=== PATIENT | female | born 1985 | race Hispanic/Latino ===

== ENCOUNTER 2021-11-05 10:55 | Emergency (ER) | payer SELFPAY ==
[2021-11-05 11:40] LABS: Bilirubin Neg (Negative); Blood, Urine Negative (Negative); Clarity Slightly Cloudy (Clear); Glucose, Urine (Dipstick) Normal (Negative); Ketone, Urine Negative (Negative); Leukocyte 25 (Negative); Nitrite Negative (Negative); Protein, Urine (Dipstick) Negative (Neg-Trace); Urobilinogen Normal mg/dL (Less than 2)
[2021-11-05 11:49] LABS: #Eosinphils 0.1 10x3/uL (0.0-0.5); #Monocytes 0.5 10x3/uL (0.0-1.1); #Neutrophils 5.9 10x3/uL (1.5-8.4); %Basophils 0.3 % (0.0-2.0); %Eosinophils 0.6 % (0.0-6.0); %Lymphocytes 25.6 % (18.0-47.0); %Monocytes 5.2 % (0.0-10.0); %Neutrophils 67.8 % (40.0-75.0); Hemoglobin 13.7 g/dL (12.0-15.5); Mean Corpuscular HGB CONC 33.9 g/dL (32.0-36.0); Mean Corpuscular Hemoglobin 29.5 pg (27.0-33.0); Mean Corpuscular Volume 87.1 fl (81.6-98.3); Mean Platelet Volume 10.5 fl (7.4-10.4); Platelet Count 213 10x3/uL (150-450); RBC Distribution Width 13.3 % (11.5-14.5); Red Blood Cell (RBC) Count 4.64 10x6/uL (3.90-5.03); White Blood Cell (WBC) Count 8.7 10x3/uL (3.5-10.5)
[2021-11-05 12:00] LABS: RBC/HPF 0-3 HPF (0-3); WBC/HPF 0-3 HPF (0-3)
[2021-11-05 12:01] LABS: Bacteria/HPF 2+ HPF (None Seen)
[2021-11-05 12:01] LABS: ALT (SGPT) 17 U/L (8-55); AST (SGOT) 19 U/L (5-34); Albumin 4.3 g/dL (3.5-5.0); Alkaline Phosphatase 78 U/L (40-110); Anion Gap 14 mmol/L (10-20); BUN (Urea Nitrogen) 10 mg/dL (7.0-18.7); Bilirubin, Total 0.6 mg/dL (0.2-1.2); Calc. Creatinine Clearance 0 mL/min (70-130); Calcium 9.4 mg/dL (7.8-10.44); Carbon Dioxide 22 mmol/L (22-29); Chloride 103 mmol/L (98-107); Glucose 78 mg/dL (70-105); Lipase 10 U/L (8-78); Potassium 3.9 mmol/L (3.5-5.1); Protein, Total 8.3 g/dL (6.0-8.3); Sodium 135 mmol/L (136-145)
== END 2021-11-05 14:10 | disposition home or self-care (01) ==
LOC: CSHERS 10:55
DX: O99.891 Other specified diseases and conditions complicating pregnancy (principal); R06.00 Dyspnea, unspecified; Z3A.01 Less than 8 weeks gestation of pregnancy
CPT/HCPCS: 71045; 80053; 81003; 81015; 83690; 84702; 85025

== ENCOUNTER → 2022-05-20 | Day surgery (SDC) | payer SELFPAY ==
[~2022-05-20] MED LIST: Acetaminophen 500 MG TAB ONE; Acetaminophen 500 MG TAB PO SCH; Iron Sucrose Complex 500 MG in Sodium Chloride 0.9% 250 ML 250 ML IVPB SCH
== END ==
LOC: CSHSDC/OP 08:04
PROVIDERS: ATTEND Obstetrics & Gynecology
DX: O99.019 Anemia complicating pregnancy, unspecified trimester (principal); D64.9 Anemia, unspecified
CPT/HCPCS: J1756; J7050

== ENCOUNTER 2022-06-22 13:35 | Inpatient (IN) | payer OTHER ==
[2022-06-23] MEDS ORDERED: Bupivacaine 0.25% HCL 30 ML VIAL ONE (13:43)
[2022-06-23] MEDS ORDERED: Lidocaine 1% (PF) 30 ML VIAL SC PRN (17:54)
[2022-06-23] MEDS ORDERED: hydrALAZINE 20 MG/ML VIAL SLOW IVP PRN (17:54)
[2022-06-23] MEDS ORDERED: Ondansetron PF 4 MG/2 ML Vial IVP PRN (17:54)
[2022-06-23] MEDS ORDERED: Promethazine HCl 25 MG/ML VIAL IM PRN (17:54)
[2022-06-23] MEDS ORDERED: Acetaminophen 500 MG TAB PO PRN (17:55)
[2022-06-23] MEDS ORDERED: Methylergonovine 0.2 MG/ML VIAL IM PRN (17:55)
[2022-06-23] MEDS ORDERED: Ibuprofen 800 MG TAB PO PRN (17:55)
[2022-06-23] MEDS ORDERED: Misoprostol 200 MCG TAB PR PRN (17:55)
[2022-06-23] MEDS ORDERED: Carboprost 250 MCG/ML AMP IM PRN (17:55)
[2022-06-23] MEDS ORDERED: NS w/ Oxytocin 30 units 500 ML IV SCH ×2 (18:00)
[2022-06-23 18:59] LABS: Hemoglobin 11.7 g/dL (12.0-15.5); Mean Corpuscular HGB CONC 33.6 g/dL (32.0-36.0); Mean Corpuscular Hemoglobin 28.4 pg (27.0-33.0); Mean Corpuscular Volume 84.5 fl (81.6-98.3); Mean Platelet Volume 11.4 fl (7.4-10.4); Platelet Count 200 10x3/uL (150-450); RBC Distribution Width 20.3 % (11.5-14.5); Red Blood Cell (RBC) Count 4.12 10x6/uL (3.90-5.03); White Blood Cell (WBC) Count 9.5 10x3/uL (3.5-10.5)
[2022-06-23 19:33] LABS: HBSAg Index 0.24 S/CO (0-0.99); Hep B Surf Ag Non-Reactive S/CO (NonReactive)
[2022-06-23 19:35] LABS: Syphilis Antibody Nonreactive (Nonreactive); Syphilis Antibody Index 0.04 S/CO (<1.00 Non-Reactive)
[2022-06-23] MEDS: Misoprostol 100 MCG TAB VAG SCH (19:35)
[2022-06-23 19:50] VITALS: BMI 41.0
[2022-06-23 20:49] LABS: SARS-CoV-2 NAA Rapid Test Not Detected (NotDetected)
[2022-06-24] MEDS ORDERED: Fentanyl 100 MCG/2 ML VIAL SLOW IVP SCH ×2 (05:30→22:45)
[2022-06-24] MEDS ORDERED: Fentanyl 2 mcg/Bup 0.1% Cadd 100 ML ONE (10:16)
[2022-06-24] MEDS ORDERED: Naloxone HCl 0.4 mg/ml Vial IVP PRN ×2 (10:52)
[2022-06-24] MEDS ORDERED: diphenhydrAMINE 50 MG/ML VIAL IVP PRN (10:52)
[2022-06-24] MEDS ORDERED: Acetaminophen 325 MG TAB PO PRN (10:52)
[2022-06-24] MEDS ORDERED: Lactated Ringer's 500 ML IV PRN (10:52)
[2022-06-24] MEDS ORDERED: Ondansetron PF 4 MG/2 ML Vial IVP PRN (10:52)
[2022-06-24] MEDS ORDERED: Moisturizing Cream (Eucerin) 113 GM JAR TOP PRN (10:52)
[2022-06-24] MEDS ORDERED: Promethazine HCl 25 MG/ML VIAL IM PRN (10:52)
[2022-06-24] MEDS ORDERED: ePHEDrine Sulfate 50 MG/10 ML VIAL SLOW IVP PRN (10:52)
[2022-06-24] MEDS ORDERED: Fentanyl 2 mcg/Bupivacaine 0.1% Cassette 100 ML EPIDURAL SCH (11:00)
[2022-06-24] MEDS ORDERED: Communication Order-Pharmacy FS SCH (11:00)
[2022-06-24] MEDS ORDERED: Tranexamic Acid 1,000 MG/10 ML VIAL ONE (19:18)
[2022-06-24] MEDS ORDERED: Misoprostol 200 MCG TAB VAG PRN (22:16)
[2022-06-24] MEDS ORDERED: Lanolin Ointment 7 GM TUBE TOP PRN (22:16)
[2022-06-24] MEDS ORDERED: Bisacodyl 10 MG SUPP PR PRN (22:16)
[2022-06-24] MEDS ORDERED: Methylergonovine 0.2 MG/ML VIAL IM PRN (22:16)
[2022-06-24] MEDS ORDERED: hydrALAZINE 20 MG/ML VIAL SLOW IVP PRN (22:16)
[2022-06-24] MEDS ORDERED: Milk Of Magnesia 30 ML UDCUP PO PRN (22:16)
[2022-06-24] MEDS ORDERED: Boostrix 0.5 ML (Tdap) VIAL (>/=7 yrs of age) IM ONE (22:16)
[2022-06-24] MEDS ORDERED: Ibuprofen 800 MG TAB PO SCH (22:30)
[2022-06-24] MEDS ORDERED: Docusate 100 MG CAP PO SCH (22:30)
[2022-06-25] MEDS: Ibuprofen 800 MG TAB PO SCH ×3 (04:01→20:27)
[2022-06-25 04:25] LABS: Hemoglobin 9.6 g/dL (12.0-15.5)
[2022-06-25] MEDS ORDERED: Ibuprofen 800 MG TAB PO SCH (06:00)
[2022-06-25] MEDS: Acetaminophen 500 MG TAB PO SCH ×2 (10:50→19:13)
[2022-06-25] MEDS: Docusate 100 MG CAP PO SCH ×2 (11:04→20:28)
[2022-06-25] MEDS: Ferrous Sulfate 325 MG TAB PO SCH ×2 (11:04→19:13)
[2022-06-25] MEDS: Misoprostol 100 MCG TAB VAG SCH ×2 (21:06→21:07)
[2022-06-26] MEDS: Acetaminophen 500 MG TAB PO SCH ×2 (02:59→08:50)
[2022-06-26] MEDS: Ibuprofen 800 MG TAB PO SCH (03:23)
[2022-06-26 08:07] VITALS: BP 102/57; TEMP 98.4
[2022-06-26] MEDS: Ferrous Sulfate 325 MG TAB PO SCH (08:49)
[2022-06-26] MEDS: Docusate 100 MG CAP PO SCH (08:49)
== END 2022-06-26 14:20 | disposition home or self-care (01) | DRG 807 ==
LOC: CSHLD 06-23 17:49 → CSHPP 06-25 10:05
PROVIDERS: ADMIT Family Medicine; ATTEND Family Medicine
PROC: 3E0P7VZ Introduction of Hormone into Female Reproductive, Via Natural or Artificial Opening (ICD-10-PCS; 2022-06-23)
PROC: 10907ZC Drainage of Amniotic Fluid, Therapeutic from Products of Conception, Via Natural or Artificial Opening (ICD-10-PCS; 2022-06-23)
PROC: 3E033VJ Introduction of Other Hormone into Peripheral Vein, Percutaneous Approach (ICD-10-PCS; 2022-06-23)
PROC: 10H07YZ Insertion of Other Device into Products of Conception, Via Natural or Artificial Opening (ICD-10-PCS; 2022-06-23)
PROC: 10E0XZZ Delivery of Products of Conception, External Approach (ICD-10-PCS; principal; 2022-06-24)
DX: O99.344 Other mental disorders complicating childbirth (principal); Z37.0 Single live birth; F41.1 Generalized anxiety disorder; D64.9 Anemia, unspecified; O99.02 Anemia complicating childbirth; Z79.82 Long term (current) use of aspirin; Z79.899 Other long term (current) drug therapy; O69.81X0 Labor and delivery complicated by cord around neck, without compression, not applicable or unspecified; F32.9 Major depressive disorder, single episode, unspecified; Z3A.40 40 weeks gestation of pregnancy
CPT/HCPCS: 36415; 51702; 85014; 85018; 85027; 86780; 86850; 86900; 86901; 87340; 99282; J2405; J2590; J3010; S0020; U0002

== ENCOUNTER 2022-06-22 19:00 | Day surgery (SDC) | payer OTHER ==
[2022-06-22 20:24] VITALS: BMI 26.6
[2022-06-22] MEDS ORDERED: hydrALAZINE 20 MG/ML VIAL SLOW IVP PRN (21:45)
[2022-06-22] MEDS ORDERED: Acetaminophen 325 MG TAB PO SCH (22:30)
== END 2022-06-22 23:03 | disposition home or self-care (01) ==
LOC: CSHLD/OP 19:00
PROVIDERS: ATTEND Emergency Medicine
DX: O47.1 False labor at or after 37 completed weeks of gestation (principal); O99.013 Anemia complicating pregnancy, third trimester; D64.9 Anemia, unspecified; O99.343 Other mental disorders complicating pregnancy, third trimester; F32.9 Major depressive disorder, single episode, unspecified; Z3A.39 39 weeks gestation of pregnancy
CPT/HCPCS: 99282

== ENCOUNTER 2025-05-30 18:00 | Inpatient (IN) | payer OTHER ==
[2025-05-30] MEDS ORDERED: hydrALAZINE 20 MG/ML VIAL SLOW IVP PRN (18:34)
[2025-05-30] MEDS ORDERED: Ondansetron PF 4 MG/2 ML Vial IVP PRN (18:34)
[2025-05-30] MEDS ORDERED: Lidocaine 1% (PF) 30 ML VIAL SC PRN (18:34)
[2025-05-30] MEDS ORDERED: Acetaminophen 500 MG TAB PO PRN (18:35)
[2025-05-30] MEDS ORDERED: Tranexamic Acid 1,000 MG/10 ML VIAL IVP PRN (18:35)
[2025-05-30] MEDS ORDERED: Methylergonovine 0.2 MG/ML VIAL IM PRN (18:35)
[2025-05-30] MEDS ORDERED: Oxytocin 30 units/NS 500 ML 500 ML IV SCH (18:45)
[2025-05-30 19:33] VITALS: BMI 36.9
[2025-05-30 21:48] LABS: Hematocrit 38.6 % (34.9-44.5); Hemoglobin 13.4 g/dL (12.0-15.5); Mean Corpuscular Hemoglobin 29.8 pg (27.0-33.0); Mean Corpuscular Volume 85.8 fL (81.6-98.3); Platelet Count 221 10x3/uL (150-450); Red Blood Cell (RBC) Count 4.50 10x6/uL (3.90-5.03); White Blood Cell (WBC) Count 9.30 10x3/uL (3.5-10.5)
[2025-05-31] MEDS ORDERED: Glucagon 1 MG/ML KIT IM PRN (00:53)
[2025-05-31] MEDS ORDERED: Dextrose 50% Abboject 50 ML SYRINGE SLOW IVP PRN (00:53)
[2025-05-31] MEDS: Ketorolac Tromethamine 30 MG (1 mL) VIAL IVP SCH (07:45)
[2025-05-31] MEDS ORDERED: Carboprost 250 MCG/ML AMP IM SCH (12:00)
[2025-05-31] MEDS: Diphenoxylate HCl/Atropine Tablet PO PRN ×2 (12:17→18:03)
[2025-05-31] MEDS: Carboprost 250 MCG/ML AMP IM PRN (12:19)
[2025-05-31 13:05] LABS: Reference Lab Name LABCORP
[2025-05-31] MEDS: Carboprost 250 MCG/ML AMP IM SCH (18:02)
[2025-05-31] MEDS: Ketorolac Tromethamine 30 MG (1 mL) VIAL IM SCH (18:03)
[2025-05-31] MEDS ORDERED: Diphenoxylate HCl/Atropine Tablet PO PRN (18:22)
[2025-05-31] MEDS: Diphenoxylate HCl/Atropine Tablet PO SCH (18:41)
[2025-06-01] MEDS ORDERED: Doxycycline 200 MG in Sodium Chloride 0.9% 100 ML IVPB SCH (07:00)
[2025-06-04 11:15] LABS: EliA APS New Method **** NEW METHOD ****; Mitochondrial Ab 1.2 U/mL (<4 Negative); Thyroid Peroxidase IgG Ab 7.4 IU/mL (<25 Normal); beta-2-Glycoprotein I IgG Ab Less than 0.8 U/mL (<7 Negative); beta-2-Glycoprotein I IgM Abs Less than 2.4 U/mL (<7 Negative); dsDNA IgG Antibody 1.4 IU/mL (<10 Negative)
[2025-06-04 11:44] LABS: ANA Symphony (Qualitative) Negative (Negative); ANA Symphony (Quantitative) Less than 0.1 Ratio (< 0.7 Negative)
== END 2025-06-01 10:45 | disposition home or self-care (01) | DRG 779 ==
LOC: CSHLD 18:01
PROVIDERS: ADMIT Family Medicine; ATTEND Family Medicine
DX: O02.1 Missed abortion (principal); E66.812 Obesity, class 2; F32.A Depression, unspecified; Z90.49 Acquired absence of other specified parts of digestive tract; Z98.890 Other specified postprocedural states
CPT/HCPCS: 36415; 83516; 84443; 85027; 86038; 86146; 86147; 86160; 86225; 86376; 86850; 86900; 86901; 88300; J1885; J3010; J3490; J7120

== ENCOUNTER 2025-06-25 08:34 | Day surgery (SDC) | payer OTHER ==
[2025-06-24 15:39] VITALS: BMI 34.0
[2025-06-25 09:32] LABS: #Basophils 0.03 10x3/uL (0.0-0.2); #Eosinophils 0.14 10x3/uL (0.0-0.5); #Monocytes 0.46 10x3/uL (0.0-1.1); #Neutrophils 5.20 10x3/uL (1.5-8.4); %Basophils 0.4 % (0.0-2.0); %Eosinophils 1.8 % (0.0-6.0); %Lymphocytes 25.5 % (18.0-47.0); %Monocytes 5.8 % (0.0-10.0); %Neutrophils 66.1 % (40.0-75.0); Hematocrit 34.8 % (34.9-44.5); Hemoglobin 11.4 g/dL (12.0-15.5); Mean Corpuscular Hemoglobin 28.6 pg (27.0-33.0); Mean Corpuscular Volume 87.2 fL (81.6-98.3); Platelet Count 235 10x3/uL (150-450); Red Blood Cell (RBC) Count 3.99 10x6/uL (3.90-5.03); White Blood Cell (WBC) Count 7.87 10x3/uL (3.5-10.5)
[2025-06-25] MEDS ORDERED: Carboprost 250 MCG/ML AMP ONE (09:42)
[2025-06-25] MEDS ORDERED: Tranexamic Acid 1,000 MG/10 ML VIAL ONE (09:42)
[2025-06-25] MEDS ORDERED: Methylergonovine 0.2 MG/ML VIAL ONE (09:42)
[2025-06-25] MEDS ORDERED: PROPOFOL 40 ML ONE (09:44)
[2025-06-25] MEDS ORDERED: HYDROcodone/Acetaminophen 5/325 mg Tablet ONE (12:41)
== END 2025-06-25 13:17 | disposition home or self-care (01) ==
LOC: CSHSDC 08:34
PROVIDERS: ATTEND Family Medicine
PROC: 10D17ZZ Extraction of Products of Conception, Retained, Via Natural or Artificial Opening (ICD-10-PCS; principal; 2025-06-25)
DX: O03.4 Incomplete spontaneous abortion without complication (principal); E66.812 Obesity, class 2; Z90.49 Acquired absence of other specified parts of digestive tract
CPT/HCPCS: 84702; 85025; 88305; J2210; J2250; J2704; J3490